=== PATIENT | male | born 1990 | race American Indian/Alaskan Native ===

== ENCOUNTER 2016-09-17 17:57 | Emergency (ER) | payer SELFPAY ==
--- NOTE | 2016-09-17 20:07 | Emergency Department Report ---
HPI - General Chief Complaint: Sore Throat Time Seen by Provider: 09/17/16 19:25 - HPI HPI: Patient here complaining of a sore throat . He said he feels like his throat is irritated especially when he swallows. Denies any fever but reports chills. Reports sinus drainage off and on for 2 weeks.. He reports that his pain was 3 out of 10. Patient reports that he did not take any over-the- counter medication. In shortness of breath. Reports from coughing. Denies any nausea vomiting or diarrhea. Negative difficulty swallowing. ED Past Medical Hx - Past Medical History Previous Medical History?: No - Surgical History Past Surgical History?: No - Family History Family history: no significant - Social History Smoking Status: Never Smoker Substance Use Type: Alcohol - Medications Home Medications: Home Medications Medication Instructions Recorded Confirmed Last Taken Type Amoxicillin [Amoxicillin TAB] 875 mg PO BID #14 tablet 09/17/16 Unknown Rx Fluticasone [Flonase] 1 spray NS QDAY #1 bottle 09/17/16 Unknown Rx Loratadine [Claritin] 10 mg PO DAILY #10 tablet 09/17/16 Unknown Rx predniSONE [Deltasone] 50 mg PO QDAY #5 tab 09/17/16 Unknown Rx ED Review of Systems ROS: Stated complaint: THROAT SWOLLEN Other details as noted in HPI Comment: All other systems reviewed and negative Constitutional: chills ENT: throat pain, congestion. denies: ear pain Respiratory: cough. denies: shortness of breath, SOB with exertion, SOB at rest , stridor, wheezing Cardiovascular: denies: chest pain, palpitations, edema, syncope Gastrointestinal: denies: nausea, vomiting Musculoskeletal: denies: back pain, arthralgia Skin: denies: rash Neurological: denies: headache Physical Exam - Physical Exam Vital Signs: Vital Signs 09/17/16 17:58 Temperature 98.1 F Pulse Rate 74 Respiratory 19 Rate Blood Pressure 119/81 O2 Sat by Pulse 100 Oximetry General: This is a 25-year-old male well-nourished well-developed in no acute distress Physical Exam: Head: Normocephalic atraumatic Mouth: Moist, no pharyngeal exudate or erythema. Uvula is midline and oral airway is patent. No gingival enlargement or dental tenderness. No facial swelling. No peritonsillar abscesses. Neck: Supple, no C-spine tenderness, no tracheal deviation. Nontender to palpate. no adenopathy Ears: Bilateral TMs congested without erythema .bilateral EAC without any redness swelling or drainage Eyes: Bilateral pupils equal and reactive to light, bilateral EOM intact. Bilateral sclera and conjunctiva without injection. Normal accommodation Nose: Mucosa moist, positive congestion with erythema. Positive clear drainage. maxillary and frontal sinus non-tender to palpate. Lungs: Clear to auscultate bilaterally no rhonchi wheezes or rales. Normal work of breathing extremity; No CCE. +2 pulses. No neurovascular compromise Cardiovascular: S1-S2, regular rate rhythm. No murmurs. Skin: clean Dry and intact no rash no lesions Psych: Normal mood and behavior ED Course Vital Signs 09/17/16 17:58 Temperature 98.1 F Pulse Rate 74 Respiratory 19 Rate Blood Pressure 119/81 O2 Sat by Pulse 100 Oximetry - Reevaluation(s) Reevaluation #1: 09/17/16 20:07 Patient stable throughout ED stay ED Medical Decision Making - Medical Decision Making ED course: I assumed patient that based on the physical findings he has a sinus infection and will be treated with antibiotic, Claritin, prednisone and nasal Flonase. Patient was understanding of diagnosis and treatment plan. Patient discharged home with prescription for amoxicillin, Claritin, prednisone and Flonase. I discussed with him that he will need to follow-up with his primary care physician in 3-5 days and if he does not have a primary care physician and he'll need to follow-up with outside Medical Center. Critical care attestation.: If time is entered above; I have spent that time in minutes in the direct care of this critically ill patient, excluding procedure time. ED Disposition Clinical Impression: Sinusitis, acute Qualifiers: Sinusitis location: unspecified location Recurrence: not specified as recurrent Qualified Code(s): J01.90 - Acute sinusitis, unspecified Acute pharyngitis Qualifiers: Pharyngitis/tonsillitis etiology: unspecified etiology Qualified Code(s): J02.9 - Acute pharyngitis, unspecified Disposition: DISCHARGED TO HOME OR SELFCARE Is pt being admited?: No Does the pt Need Aspirin: No Condition: Stable Instructions: Sinusitis (ED), Pharyngitis (ED) Additional Instructions: You can gargle with warm salt water to relieve sore throat Please take medication as instructed Use saline nasal wash to flush nostrils out. Prescriptions: Amoxicillin [Amoxicillin TAB] 875 mg PO BID #14 tablet Fluticasone [Flonase] 1 spray NS QDAY #1 bottle Loratadine [Claritin] 10 mg PO DAILY #10 tablet predniSONE [Deltasone] 50 mg PO QDAY #5 tab Referrals: PRIMARY CARE, [Primary Care Provider] - 3-5 Days Forms: Accompanied Note, Work/School Release Form(ED)
[2016-09-17 20:55] VITALS: BP 120/77
== END 2016-09-17 20:55 | disposition home or self-care (01) ==
LOC: ED 17:57
DX: J01.90 Acute sinusitis, unspecified (principal); J02.9 Acute pharyngitis, unspecified
CPT/HCPCS: 99282